=== PATIENT | male | born 1940 | race Caucasian/White ===

== ENCOUNTER 2017-04-08 16:21 | Inpatient (IN) | payer MEDICARE, OTHER ==
[~2017-04-08] VITALS: Ht 177.8 cm; Wt 92.4 kg
[2017-04-08] MEDS ORDERED: SODIUM CHLORIDE 0.9% 1,000 ML IV ONE (16:50)
[2017-04-08] MEDS ORDERED: CEFTRIAXONE PMX 1GM/50ML 50 ML IVPB ONE (17:00)
[2017-04-08] MEDS ORDERED: SODIUM CHLORIDE FLUSH 10ML SYR IVF ONE (17:00)
[2017-04-08] MEDS ORDERED: PLEASE ENTER ALLERGIES MC SCH ×2 (17:00)
[2017-04-08] MEDS ORDERED: CEFTRIAXONE PMX 1GM/50ML 50 ML ONE (17:19)
[2017-04-08 17:23] LABS: ASPARTATE AMINO TRANSFERASE 16 U/L (15-37); BLOOD UREA NITROGEN 23 mg/dL (7-18)
[2017-04-08 17:26] LABS: HEMATOCRIT 40.3 % (39.2-51.8); HEMOGLOBIN 13.4 g/dL (13.7-18.0); WHITE BLOOD COUNT 10.4 x10^3/uL (3.4-10)
[2017-04-08] MEDS ORDERED: SODIUM CHLORIDE 0.9% 1,000 ML IV SCH (17:44)
[2017-04-08] MEDS ORDERED: ACETAMINOPHEN 325 MG TABLET PO PRN (18:00)
[2017-04-08] MEDS ORDERED: SODIUM CHLORIDE FLUSH 10ML SYR IVF PRN (18:00)
[2017-04-08] MEDS ORDERED: hydrALAzine 20 MG/ML, 1ML IVPush PRN (18:00)
[2017-04-08] MEDS ORDERED: DEXTROSE 4 GM TAB.CHEW PO PRN (18:00)
[2017-04-08] MEDS ORDERED: ONDANSETRON 2MG/ML, 2ML IVPush PRN (18:00)
[2017-04-08] MEDS ORDERED: GLUCAGON 1 MG IM PRN (18:00)
[2017-04-08] MEDS ORDERED: DEXTROSE 50%, 50ML SYRINGE IVPush PRN (18:00)
[2017-04-08] MEDS ORDERED: PHARMACY MAY ADJ FOR RENAL FX MC PRN (18:00)
[2017-04-08] MEDS ORDERED: morphine SULFATE 10 MG/ML, 1ML IVPush PRN (18:00)
[2017-04-08] MEDS ORDERED: DOCUSATE 100 MG CAPSULE PO PRN (18:00)
[2017-04-08 19:34] VITALS: BP 144/79
[2017-04-08 20:15] VITALS: BP 144/79
[2017-04-08] MEDS ORDERED: INSULIN ASPART 70/30 100U/ML, PEN SQ-INSULIN SCH (21:00)
[2017-04-08] MEDS ORDERED: INSULIN ASPART 70/30, VIAL SQ-INSULIN SCH (21:00)
[2017-04-08] MEDS ORDERED: INSULIN ASPART 100 UNITS/ML, PEN SQ-INSULIN SCH (21:00)
[2017-04-08] MEDS ORDERED: INSULIN HUMULIN 70/30, 3ML PEN SQ-INSULIN SCH (21:00)
[2017-04-08] MEDS: INSULIN ASPART 70/30 100U/ML, PEN SQ-INSULIN SCH (23:04)
[2017-04-08] MEDS: INSULIN ASPART 100 UNITS/ML, PEN SQ-INSULIN SCH (23:05)
[2017-04-08] MEDS: SIMVASTATIN 40 MG TABLET PO SCH (23:05)
[2017-04-08] MEDS: MIRTAZAPINE 15 MG TABLET PO SCH (23:06)
[2017-04-08] MEDS: SODIUM CHLORIDE FLUSH 10ML SYR IVF SCH (23:12)
[2017-04-09] MEDS: HYDROcodone/APAP 5/325 TABLET PO PRN ×3 (00:26→21:02)
[2017-04-09 03:02] VITALS: BP 118/73
[2017-04-09 05:27] LABS: HEMATOCRIT 38.3 % (39.2-51.8); HEMOGLOBIN 12.6 g/dL (13.7-18.0); WHITE BLOOD COUNT 10.1 x10^3/uL (3.4-10)
[2017-04-09 05:36] LABS: BLOOD UREA NITROGEN 25 mg/dL (7-18)
[2017-04-09 05:40] LABS: ASPARTATE AMINO TRANSFERASE 11 U/L (15-37)
[2017-04-09] MEDS: METOPROLOL TARTRATE 50 MG TABLET PO SCH (05:51)
[2017-04-09] MEDS ORDERED: ALBUTEROL/IPRATROPIUM 2.5MG/0.5MG, 3 ML NPPB SCH (07:00)
[2017-04-09] MEDS: ALBUTEROL SULFATE 2.5 MG/3 ML NPPB SCH ×4 (07:35→19:25)
[2017-04-09] MEDS: INSULIN ASPART 100 UNITS/ML, PEN SQ-INSULIN SCH ×4 (08:16→21:02)
[2017-04-09] MEDS: SODIUM CHLORIDE FLUSH 10ML SYR IVF SCH ×2 (08:16→21:01)
[2017-04-09] MEDS: INSULIN ASPART 70/30 100U/ML, PEN SQ-INSULIN SCH ×2 (08:17→21:02)
[2017-04-09] MEDS: DIGOXIN 0.125 MG TABLET PO SCH (08:18)
[2017-04-09 08:31] VITALS: BP 120/70
[2017-04-09 08:41] LABS: TOTAL IRON BINDING CAPACITY 319 mcg/dL (250-450)
[2017-04-09 11:57] VITALS: BP 117/76
[2017-04-09] MEDS ORDERED: CARV3.122 PO (12:52)
[2017-04-09] MEDS ORDERED: ROSU20TA PO (12:52)
[2017-04-09] MEDS ORDERED: RIVA15TA PO (12:52)
[2017-04-09] MEDS ORDERED: DIGO125T PO (12:52)
[2017-04-09] MEDS ORDERED: DONE5TAB7 PO (12:52)
[2017-04-09] MEDS ORDERED: OMEP40CA6 PO (12:52)
[2017-04-09] MEDS ORDERED: MIRT30TA4 PO (12:52)
[2017-04-09 15:53] VITALS: BP 100/59
[2017-04-09] MEDS: RIVAROXABAN 15 MG TABLET PO SCH (16:09)
[2017-04-09] MEDS: CEFTRIAXONE PMX 2GM/50ML 50 ML IV SCH (17:43)
[2017-04-09] MEDS ORDERED: DIVA500T17 PO (18:44)
[2017-04-09] MEDS ORDERED: GEMF600T3 PO (18:44)
[2017-04-09] MEDS ORDERED: BENZ1TAB61 PO (18:44)
[2017-04-09 19:55] VITALS: BP 95/51
[2017-04-09] MEDS: SIMVASTATIN 40 MG TABLET PO SCH (21:01)
[2017-04-09] MEDS: MIRTAZAPINE 15 MG TABLET PO SCH (21:01)
[2017-04-09] MEDS ORDERED: MORPHINE SULFATE 4 MG/ML, 1ML ONE (23:46)
[2017-04-10 03:38] VITALS: BP 94/54
[2017-04-10] MEDS: METOPROLOL TARTRATE 50 MG TABLET PO SCH (05:56)
[2017-04-10] MEDS: HYDROcodone/APAP 5/325 TABLET PO PRN ×2 (06:04→17:40)
[2017-04-10] MEDS: INSULIN ASPART 100 UNITS/ML, PEN SQ-INSULIN SCH ×4 (07:00→21:42)
[2017-04-10 07:11] VITALS: BP 99/58
[2017-04-10] MEDS: DIGOXIN 0.125 MG TABLET PO SCH (07:36)
[2017-04-10] MEDS: SODIUM CHLORIDE FLUSH 10ML SYR IVF SCH ×2 (07:40→21:41)
[2017-04-10] MEDS: ALBUTEROL SULFATE 2.5 MG/3 ML NPPB SCH ×4 (07:52→19:15)
[2017-04-10 08:13] LABS: HEMATOCRIT 38.5 % (39.2-51.8); HEMOGLOBIN 12.8 g/dL (13.7-18.0); WHITE BLOOD COUNT 12.3 x10^3/uL (3.4-10)
[2017-04-10 08:22] LABS: BLOOD UREA NITROGEN 27 mg/dL (7-18)
[2017-04-10] MEDS: INSULIN ASPART 70/30 100U/ML, PEN SQ-INSULIN SCH ×2 (08:49→21:42)
[2017-04-10] MEDS ORDERED: CALCIUM CARBONATE 500 MG TAB.CHEW PO PRN (09:30)
[2017-04-10] MEDS ORDERED: HEMORRHOIDAL OINT, 28 GM (PREP H) RC PRN (09:30)
[2017-04-10 13:38] VITALS: BP 105/70
[2017-04-10] MEDS: RIVAROXABAN 15 MG TABLET PO SCH (16:36)
[2017-04-10 20:02] VITALS: BP 94/54
[2017-04-10] MEDS: MIRTAZAPINE 15 MG TABLET PO SCH (21:41)
[2017-04-10] MEDS: CEFTRIAXONE PMX 2GM/50ML 50 ML IV SCH (21:41)
[2017-04-10] MEDS: SIMVASTATIN 40 MG TABLET PO SCH (21:42)
[2017-04-11 02:31] VITALS: BP 129/59
[2017-04-11] MEDS: HYDROcodone/APAP 5/325 TABLET PO PRN ×2 (05:24→11:58)
[2017-04-11] MEDS: METOPROLOL TARTRATE 50 MG TABLET PO SCH (05:24)
[2017-04-11 05:32] LABS: HEMATOCRIT 40.3 % (39.2-51.8); HEMOGLOBIN 13.4 g/dL (13.7-18.0); WHITE BLOOD COUNT 10.6 x10^3/uL (3.4-10)
[2017-04-11 05:40] LABS: ASPARTATE AMINO TRANSFERASE 19 U/L (15-37); BLOOD UREA NITROGEN 27 mg/dL (7-18)
[2017-04-11] MEDS: INSULIN ASPART 100 UNITS/ML, PEN SQ-INSULIN SCH ×2 (07:00→11:50)
[2017-04-11] MEDS: ALBUTEROL SULFATE 2.5 MG/3 ML NPPB SCH ×2 (07:00→10:50)
[2017-04-11 07:31] VITALS: BP 86/43
[2017-04-11] MEDS: SODIUM CHLORIDE FLUSH 10ML SYR IVF SCH (08:37)
[2017-04-11] MEDS: DIGOXIN 0.125 MG TABLET PO SCH (08:38)
[2017-04-11] MEDS: INSULIN ASPART 70/30 100U/ML, PEN SQ-INSULIN SCH (08:39)
[2017-04-11 09:00] VITALS: BP 110/62
[2017-04-11] MEDS ORDERED: METO25TA91 PO (10:36)
[2017-04-11 12:53] VITALS: BP 90/48
[2017-04-12] MEDS ORDERED: ALBUTEROL SULFATE 2.5 MG/3 ML NPPB PRN (07:00)
== END 2017-04-11 16:30 | DRG 291 ==
LOC: ED 17:19 → EDIP 17:44 → 4EST 19:24
PROVIDERS: ADMIT Internal Medicine; ATTEND Internal Medicine
PROC: 0T9B70Z Drainage of Bladder with Drainage Device, Via Natural or Artificial Opening (ICD-10-PCS; principal; 2017-04-08)
DX: I11.0 Hypertensive heart disease with heart failure (principal); N17.0 Acute kidney failure with tubular necrosis; N39.0 Urinary tract infection, site not specified; J96.10 Chronic respiratory failure, unspecified whether with hypoxia or hypercapnia; I50.9 Heart failure, unspecified; E11.42 Type 2 diabetes mellitus with diabetic polyneuropathy; R53.1 Weakness; E78.00 Pure hypercholesterolemia, unspecified; E78.5 Hyperlipidemia, unspecified; I35.8 Other nonrheumatic aortic valve disorders; J44.9 Chronic obstructive pulmonary disease, unspecified; K59.00 Constipation, unspecified; M43.16 Spondylolisthesis, lumbar region; I25.10 Atherosclerotic heart disease of native coronary artery without angina pectoris; M51.36 Other intervertebral disc degeneration, lumbar region; N40.0 Benign prostatic hyperplasia without lower urinary tract symptoms; Z79.01 Long term (current) use of anticoagulants; Z86.73 Personal history of transient ischemic attack (TIA), and cerebral infarction without residual deficits; Z87.440 Personal history of urinary (tract) infections; Z87.891 Personal history of nicotine dependence; Z95.0 Presence of cardiac pacemaker; Z90.89 Acquired absence of other organs
CPT/HCPCS: 36415; 71010; 72100; 72220; 80048; 80053; 81003; 82607; 82746; 82962; 83036; 83540; 83550; 83605; 83735; 84100; 84439; 84443; 85025; 87040; 87086; 94640; 96365; 96366; C8929; J0696; J1815; J7613; 92523-GN; J2270; J7030

== ENCOUNTER 2017-12-09 17:54 | Inpatient (IN) | payer MEDICARE, OTHER ==
[~2017-12-09] VITALS: Ht 177.8 cm; Wt 84.0 kg
[~2017-12-09 17:54] MED LIST: ASPI-496 PO; BENZ1TAB61 PO; CARV3.122 PO; CIPR500T87 PO; DIGO125T PO; DIVA500T17 PO; DONE5TAB7 PO; GEMF600T3 PO; HYDROXYZINE HCL; LACT1CAP24 PO; LINE600T37 PO; METHOCARBAMOL; METO25TA91 PO; MIRT30TA4 PO; OMEP40CA6 PO; RIVA15TA PO; ROSU20TA PO
[2017-12-09] MEDS ORDERED: SODIUM CHLORIDE FLUSH 10ML SYR IVF ONE (18:30)
[2017-12-09] MEDS ORDERED: SODIUM CHLORIDE 0.9% 1,000ML IVBOLUS ONE (18:30)
[2017-12-09 18:33] LABS: BASOPHILS # (AUTO) 0.07 x10^3/uL (0-0.1); BASOPHILS % (AUTO) 1 % (0-1); EOSINOPHILS # (AUTO) 0.38 x10^3/uL (0-0.4); EOSINOPHILS % (AUTO) 3 % (1-7); LYMPHOCYTES # (AUTO) 3.66 x10^3/uL (1-3.4); LYMPHOCYTES % (AUTO) 27 % (22-44); MD NO; MEAN CORPUSCULAR HEMOGLOBIN 29.4 pg (27.5-34.5); MEAN CORPUSCULAR HGB CONC 32.9 g/dL (33.2-36.2); MEAN CORPUSCULAR VOLUME 89.3 fL (81-97); MEAN PLATELET VOLUME 7.7 fL (7.4-10.4); MONOCYTES # (AUTO) 1.34 x10^3/uL (0.2-0.8); MONOCYTES % (AUTO) 10 % (2-9); NEUTROPHILS # (AUTO) 8.29 x10^3/uL (1.8-6.8); NEUTROPHILS % (AUTO) 60 % (42-75); PLATELET COUNT 412 x10^3/uL (130-400); RED BLOOD COUNT 3.64 x10^6/uL (4.38-5.82); RED CELL DISTRIBUTION WIDTH 14.1 % (9.4-14.8)
[2017-12-09 18:43] LABS: ALANINE AMINOTRANSFERASE 45 U/L (12-78); ALBUMIN 2.8 g/dL (3.4-5.0); ANION GAP 9 mmol/L (5-15); CALCIUM 9.1 mg/dL (8.5-10.1); CHLORIDE 99 mmol/L (98-107); CREATININE 1.92 mg/dL (0.7-1.3)
[2017-12-09 18:45] LABS: ALKALINE PHOSPHATASE 68 U/L (45-117); BILIRUBIN,TOTAL 0.2 mg/dL (0.2-1.0); TOTAL PROTEIN 7.9 g/dL (6.4-8.2)
[2017-12-09 18:45] LABS: CULTURE INDICATED? YES; MICROSCOPIC INDICATED
[2017-12-09] MEDS ORDERED: SODIUM CHLORIDE 0.9%, 500ML IVBOLUS ONE (20:30)
[2017-12-09 22:00] VITALS: BP 143/70
[2017-12-09] MEDS ORDERED: SODIUM CHLORIDE 0.9% 1,000 ML IV SCH (22:08)
[2017-12-09] MEDS ORDERED: hydrALAzine 20 MG/ML, 1ML IVPush PRN (22:30)
[2017-12-09] MEDS ORDERED: ACETAMINOPHEN 325 MG TABLET PO PRN (22:30)
[2017-12-09] MEDS ORDERED: ONDANSETRON ODT 4 MG PO PRN (22:30)
[2017-12-09] MEDS: CIPROFLOXACIN 500 MG TABLET PO SCH (23:19)
[2017-12-10] MEDS ORDERED: MIRTAZAPINE 30 MG TAB.RAPDIS PO SCH (01:00)
[2017-12-10] MEDS ORDERED: TEMPLATE NON-FORMULARY MED. (Rosuvastatin Calcium** (Crestor**) 20 MG) HOMEMEDPO SCH (01:00)
[2017-12-10] MEDS ORDERED: RIVAROXABAN 15 MG TABLET PO SCH (01:00)
[2017-12-10] MEDS: LACTOBACILLUS CHEW TABLET PO SCH ×3 (01:14→16:31)
[2017-12-10 02:12] VITALS: BP 131/55
[2017-12-10 07:21] VITALS: BP 131/72
[2017-12-10] MEDS ORDERED: GEMFIBROZIL 600 MG TABLET PO SCH (09:00)
[2017-12-10] MEDS ORDERED: DIVALPROEX 500 MG TAB.ER.24H PO SCH (09:00)
[2017-12-10] MEDS ORDERED: LINEZOLID 600 MG TABLET PO SCH (09:00)
[2017-12-10] MEDS ORDERED: DIGOXIN 0.125 MG TABLET PO SCH (09:00)
[2017-12-10] MEDS ORDERED: DONEPEZIL 5 MG TABLET PO SCH (09:00)
[2017-12-10] MEDS ORDERED: OMEPRAZOLE 20 MG CAPSULE.DR PO SCH (09:00)
[2017-12-10] MEDS ORDERED: ASPIRIN 81 MG TABLET EC PO SCH (09:00)
[2017-12-10] MEDS: CIPROFLOXACIN 500 MG TABLET PO SCH (09:08)
[2017-12-10 14:00] VITALS: BP 110/67
[2017-12-10] MEDS ORDERED: LACTOBACILLUS CHEW TABLET PO SCH (16:00)
[2017-12-10] MEDS ORDERED: INSULIN LISPRO 100 UNITS/ML, PEN SQ-INSULIN SCH (16:00)
[2017-12-10] MEDS ORDERED: BENZTROPINE 1 MG TABLET PO SCH (17:00)
[2017-12-10] MEDS ORDERED: SODIUM CHLORIDE 0.9% 1,000 ML IV SCH ×2 (22:08)
[2017-12-11] MEDS ORDERED: METOPROLOL SUCCINATE 25 MG TAB.ER.24H PO SCH (09:00)
== END 2017-12-11 05:07 | DRG 682 ==
LOC: ED 19:00 → EDIP 21:50 → 4WST 22:20
PROVIDERS: ADMIT Internal Medicine; ATTEND Family Medicine
DX: N17.0 Acute kidney failure with tubular necrosis (principal); E43 Unspecified severe protein-calorie malnutrition; J96.10 Chronic respiratory failure, unspecified whether with hypoxia or hypercapnia; E11.42 Type 2 diabetes mellitus with diabetic polyneuropathy; I11.0 Hypertensive heart disease with heart failure; I48.0 Paroxysmal atrial fibrillation; I50.22 Chronic systolic (congestive) heart failure; N13.8 Other obstructive and reflux uropathy; N39.0 Urinary tract infection, site not specified; E86.0 Dehydration; Z99.81 Dependence on supplemental oxygen; B96.5 Pseudomonas (aeruginosa) (mallei) (pseudomallei) as the cause of diseases classified elsewhere; R53.1 Weakness; E78.00 Pure hypercholesterolemia, unspecified; F03.90 Unspecified dementia, unspecified severity, without behavioral disturbance, psychotic disturbance, mood disturbance, and anxiety; I25.10 Atherosclerotic heart disease of native coronary artery without angina pectoris; J44.9 Chronic obstructive pulmonary disease, unspecified; K21.9 Gastro-esophageal reflux disease without esophagitis; N40.1 Benign prostatic hyperplasia with lower urinary tract symptoms; Z86.73 Personal history of transient ischemic attack (TIA), and cerebral infarction without residual deficits; Z87.891 Personal history of nicotine dependence; Z90.81 Acquired absence of spleen; Z95.0 Presence of cardiac pacemaker; Z79.82 Long term (current) use of aspirin
CPT/HCPCS: 36415; 80053; 80162; 80164; 81001; 82962; 85025; 87077; 87086; 87106; 93005; 96360; 96361; J7030; J7040

== ENCOUNTER 2019-08-27 01:48 | Inpatient (IN) | payer MEDICARE, OTHER ==
[~2019-08-27] VITALS: Ht 177.8 cm; Wt 80.0 kg
[~2019-08-27 01:48] MED LIST changes: -DIGO125T PO; +DIGO125T85 PO; +DOCU100C33 PO; -GEMF600T3 PO; +GEMF600T8 PO; +HYDR-826 PO; +INSU100I13 SQ-INSULIN; +INSULIN SQ; +LINE600T12 PO; -LINE600T37 PO; +MICA100V3 IV; +OMEP40CA42 PO; -OMEP40CA6 PO; -ROSU20TA PO; +ROSU20TA2 PO; +VALP250S PO
[2019-08-27 02:30] LABS: BASOPHILS # (AUTO) 0.06 x10^3/uL (0-0.1); BASOPHILS % (AUTO) 1 % (0-1); EOSINOPHILS # (AUTO) 0.37 x10^3/uL (0-0.4); EOSINOPHILS % (AUTO) 3 % (1-7); LYMPHOCYTES # (AUTO) 3.66 x10^3/uL (1-3.4); LYMPHOCYTES % (AUTO) 32 % (22-44); MD NO; MEAN CORPUSCULAR HEMOGLOBIN 29.9 pg (27.5-34.5); MEAN CORPUSCULAR VOLUME 90.7 fL (81-97); MONOCYTES # (AUTO) 1.06 x10^3/uL (0.2-0.8); MONOCYTES % (AUTO) 9 % (2-9); NEUTROPHILS # (AUTO) 6.33 x10^3/uL (1.8-6.8); NEUTROPHILS % (AUTO) 55 % (42-75); PLATELET COUNT 250 x10^3/uL (130-400); RED BLOOD COUNT 4.03 x10^6/uL (4.38-5.82); RED CELL DISTRIBUTION WIDTH 13.2 % (9.4-14.8)
[2019-08-27 02:39] LABS: ANION GAP 5 mmol/L (5-15); CALCIUM 9.1 mg/dL (8.5-10.1); CHLORIDE 97 mmol/L (98-107); CREATININE 1.67 mg/dL (0.7-1.3)
[2019-08-27 02:43] LABS: TROPONIN I < 0.015 ng/mL (0.000-0.045)
--- NOTE | 2019-08-27 02:48 | NUR ---
BIB [facility] FROM [place] d/t SOB current vss stable pt denied chest discomfort or sob at this time sats 91-62% at room air applied 2 liters of oxygen via nc pt is resting pt was gowned all monitor were connected call light within reach pt came in with suprapubic cath with clean urine noted
[2019-08-27] MEDS ORDERED: GLIP10TA13 PO (03:01)
[2019-08-27] MEDS ORDERED: SERT50TA28 PO (03:01)
[2019-08-27] MEDS ORDERED: ALOG6.25 PO (03:01)
[2019-08-27] MEDS ORDERED: RIVA15TA PO (03:01)
[2019-08-27] MEDS ORDERED: DIVA125C2 PO (03:01)
[2019-08-27] MEDS ORDERED: ROSU10TA2 PO (03:01)
[2019-08-27] MEDS ORDERED: DIGO125T81 PO (03:01)
[2019-08-27] MEDS ORDERED: RISP4TAB34 PO (03:01)
[2019-08-27] MEDS ORDERED: CARV3.1212 PO (03:01)
[2019-08-27] MEDS ORDERED: HYDR-826 PO (03:01)
[2019-08-27] MEDS ORDERED: DIGO125T85 PO (03:01)
[2019-08-27] MEDS ORDERED: FUROSEMIDE 40 MG/4 ML ONE (03:24)
[2019-08-27] MEDS: FUROSEMIDE 40 MG/4 ML IV ONE ×2 (03:29→04:13)
--- NOTE | 2019-08-27 03:50 | NUR ---
BREAK RN: ATTEMPTED IV ACCESS X 3. UNSUCCESSFUL.
[2019-08-27] MEDS ORDERED: ONDANSETRON ODT 4 MG PO PRN (04:00)
[2019-08-27] MEDS ORDERED: morphine SULFATE 10 MG/ML, 1ML IVPush PRN (04:00)
[2019-08-27] MEDS ORDERED: POLYETHYLENE GLYCOL 17 GM PACKET PO PRN (04:00)
[2019-08-27] MEDS ORDERED: DOCUSATE 100 MG CAPSULE PO PRN (04:00)
[2019-08-27] MEDS ORDERED: hydrALAzine 20 MG/ML, 1ML IVPush PRN (04:00)
[2019-08-27] MEDS ORDERED: ONDANSETRON 2MG/ML, 2ML IVPush PRN (04:00)
[2019-08-27] MEDS ORDERED: OXYcodone IR 5MG TABLET PO PRN (04:00)
[2019-08-27] MEDS ORDERED: PROMETHAZINE 25 MG/ML, 1ML IM PRN (04:00)
[2019-08-27] MEDS ORDERED: BISACODYL 10 MG SUPP PR PRN (04:00)
[2019-08-27] MEDS ORDERED: ACETAMINOPHEN 325 MG TABLET PO PRN (04:00)
--- NOTE | 2019-08-27 04:22 | NUR ---
BREAK RN: CATH BAG EMPTIED OF 1,000ML OF CLEAR YELLOW, FOUL-SMELLING URINE. MEDICATED PER OCT. PT. PROVIDED WITH SIPS OF WATER PER REQUEST. DENIES OTHER NEEDS. SAFETY MEASURES MAINTAINED.
[2019-08-27 05:11] LABS: FREE T4 (FREE THYROXINE) 0.76 ng/dL (0.76-1.46)
--- NOTE | 2019-08-27 05:26 | NUR ---
pt is sleeping vss updated guerin bag is almost full again d/t iv lasix
--- NOTE | 2019-08-27 07:07 | NUR ---
pt is sleeping vss stable given report to [facility]
--- NOTE | 2019-08-27 07:31 | NUR ---
REPORT RECEIVED FROM SILVIANO JOHNSON.
--- NOTE | 2019-08-27 08:30 | NUR ---
SANDERS CATHETER BAG REPLACED WITH 2800ML OUTPUT. NIGHTSHIFT RN STATED HE HAD 1000ML OUTPUT FOR HER FOR A TOTAL OF 3800ML SINCE LASIX ADMINISTRATION.
--- NOTE | 2019-08-27 08:38 | NUR ---
TELEPHONE CONVERSATION WITH PROVIDER BA DUBOSE REGARDING CONCERN TO START MAINTAINANCE FLUIDS AFTER 3800 OUTPUT. PROVIDER STATED TO HOLD OFF ON FLUIDS WELL HOLD ANY ORDERS FOR LASIX UNTIL HE COMES AND EVALUATES THE PATIENT THIS MORNING. WILL CONTINUE TO MONITOR.
--- NOTE | 2019-08-27 08:49 | NUR ---
TELEPHONE CONVERSATION WITH BA DUBOSE PA-C REGARDING NEED FOR SWALLOW EVAL BEFORE DELIVERING BREAKFAST TRAY. ORDER PLACED.
[2019-08-27] MEDS ORDERED: FUROSEMIDE 20 MG/2 ML IV SCH (09:00)
[2019-08-27] MEDS: DIVALPROEX 125 MG CAP.SPRINK PO SCH ×2 (09:28→21:00)
--- NOTE | 2019-08-27 09:30 | NUR ---
AM DGEY=425CX/DL. HOLDING INSULIN AT THIS TIME PATIENT'S FOOD WILL BE HELD UNTIL HE CAN BE EVALUATED BY [facility]T FOR SWALLOW STUDY. PT CHOKED WHILE DRINKING WATER THIS AM. DR. SUÁREZ NOTIFIED AND SWALLOW STUDY ORDERED.
[2019-08-27] MEDS ORDERED: CARVEDILOL 3.125 MG TABLET ONE (09:31)
--- NOTE | 2019-08-27 09:33 | NUR ---
URINE COLLECTED AND SENT TO LAB.
[2019-08-27] MEDS: RIVAROXABAN 15 MG TABLET PO SCH (09:40)
[2019-08-27] MEDS: CARVEDILOL 3.125 MG TABLET PO SCH ×2 (09:40→21:00)
[2019-08-27] MEDS: OMEPRAZOLE 20 MG CAPSULE.DR PO SCH (09:41)
--- NOTE | 2019-08-27 09:49 | NUR ---
PHARMACY REQUEST SLIP SENT FOR PO DIGOXIN.
[2019-08-27] MEDS: INSULIN LISPRO 100 UNITS/ML, PEN SQ-INSULIN SCH ×4 (09:50→21:00)
--- NOTE | 2019-08-27 09:50 | NUR ---
0900 MEDICATIONS GIVEN IN APPLE SAUCE.
[2019-08-27 09:52] LABS: MICROSCOPIC INDICATED
[2019-08-27] MEDS: DIGOXIN 0.125 MG TABLET PO SCH (10:33)
[2019-08-27] MEDS ORDERED: ALBUTEROL/IPRATROPIUM 2.5MG/0.5MG, 3 ML ONE ×2 (10:46→14:46)
--- NOTE | 2019-08-27 10:48 | NUR ---
PHARMACY REQUEST SLIP SENT FOR 10AM MEDS.
[2019-08-27] MEDS: ALBUTEROL/IPRATROPIUM 2.5MG/0.5MG, 3 ML NPPB SCH ×3 (10:55→19:22)
--- NOTE | 2019-08-27 11:01 | NUR ---
REPORT GIVEN TO ZOE JOHNSON.
[2019-08-27 11:18] LABS: ANION GAP 8 mmol/L (5-15); CALCIUM 8.9 mg/dL (8.5-10.1); CHLORIDE 98 mmol/L (98-107); CREATININE 1.75 mg/dL (0.7-1.3)
--- NOTE | 2019-08-27 12:02 | NUR ---
Report from [facility] Patient resting comfortably on hospital bed (sleeping) VSS on monitoring and evaluation advisor (paced rhythm noted) 98% on 2l nc
[2019-08-27] MEDS: IRON SUCROSE COMPLEX 100MG/5ML IV SCH (13:38)
[2019-08-27] MEDS: CHOLECALCIFEROL 1,000 UNIT TABLET PO SCH (13:38)
--- NOTE | 2019-08-27 14:00 | NUR ---
BEDSIDE REPORT TO JANET JOHNSON
[2019-08-27] MEDS ORDERED: FUROSEMIDE 20 MG/2 ML IV ONE (15:00)
[2019-08-27 15:03] VITALS: BP 103/66
[2019-08-27 20:28] VITALS: BP 98/72
[2019-08-27 20:58] VITALS: BP 166/106
[2019-08-27] MEDS: RISPERIDONE 2 MG TABLET PO SCH (21:00)
[2019-08-27] MEDS: TEMPLATE NON-FORMULARY MED. (Rosuvastatin Calcium** (Crestor**) 10 MG) PO SCH (21:00)
[2019-08-27] MEDS: SERTRALINE 50MG TABLET PO SCH (21:00)
[2019-08-27 21:20] LABS: BASOPHILS # (AUTO) 0.03 x10^3/uL (0-0.1); BASOPHILS % (AUTO) 0 % (0-1); EOSINOPHILS # (AUTO) 0.36 x10^3/uL (0-0.4); EOSINOPHILS % (AUTO) 3 % (1-7); LYMPHOCYTES # (AUTO) 3.58 x10^3/uL (1-3.4); LYMPHOCYTES % (AUTO) 28 % (22-44); MD NO; MEAN CORPUSCULAR HEMOGLOBIN 29.7 pg (27.5-34.5); MEAN CORPUSCULAR HGB CONC 32.7 g/dL (33.2-36.2); MEAN CORPUSCULAR VOLUME 90.9 fL (81-97); MONOCYTES # (AUTO) 1.01 x10^3/uL (0.2-0.8); MONOCYTES % (AUTO) 8 % (2-9); NEUTROPHILS % (AUTO) 61 % (42-75); PLATELET COUNT 248 x10^3/uL (130-400); RED BLOOD COUNT 4.55 x10^6/uL (4.38-5.82); RED CELL DISTRIBUTION WIDTH 13.8 % (9.4-14.8)
[2019-08-27 21:27] LABS: ANION GAP 7 mmol/L (5-15); CALCIUM 9.3 mg/dL (8.5-10.1); CHLORIDE 100 mmol/L (98-107)
[2019-08-27 21:37] LABS: INTERNATIONAL NORMALIZED RATIO 1.06 (0.93-1.1); PROTHROMBIN TIME 11.1 Seconds (9.6-11.5)
[2019-08-28 01:05] VITALS: BP 136/84
[2019-08-28 05:50] LABS: BASOPHILS # (AUTO) 0.03 x10^3/uL (0-0.1); BASOPHILS % (AUTO) 0 % (0-1); EOSINOPHILS # (AUTO) 0.27 x10^3/uL (0-0.4); EOSINOPHILS % (AUTO) 3 % (1-7); LYMPHOCYTES # (AUTO) 2.97 x10^3/uL (1-3.4); LYMPHOCYTES % (AUTO) 28 % (22-44); MD NO; MEAN CORPUSCULAR HEMOGLOBIN 29.6 pg (27.5-34.5); MEAN CORPUSCULAR HGB CONC 32.6 g/dL (33.2-36.2); MEAN CORPUSCULAR VOLUME 90.9 fL (81-97); MEAN PLATELET VOLUME 9.3 fL (7.4-10.4); MONOCYTES # (AUTO) 0.91 x10^3/uL (0.2-0.8); MONOCYTES % (AUTO) 9 % (2-9); NEUTROPHILS # (AUTO) 6.64 x10^3/uL (1.8-6.8); NEUTROPHILS % (AUTO) 61 % (42-75); PLATELET COUNT 240 x10^3/uL (130-400); RED BLOOD COUNT 4.79 x10^6/uL (4.38-5.82); RED CELL DISTRIBUTION WIDTH 13.6 % (9.4-14.8)
[2019-08-28 06:02] LABS: ALBUMIN 3.2 g/dL (3.4-5.0); ANION GAP 7 mmol/L (5-15); CALCIUM 9.3 mg/dL (8.5-10.1); CHLORIDE 99 mmol/L (98-107)
[2019-08-28 06:07] LABS: ALANINE AMINOTRANSFERASE 11 U/L (12-78); ALKALINE PHOSPHATASE 81 U/L (45-117); BILIRUBIN,TOTAL 0.2 mg/dL (0.2-1.0); CHOL/HDL RATIO 5.1; CHOLESTEROL, TOTAL 174 mg/dL (140-239); HDL CHOL % 20 % (26-37); HDL CHOLESTEROL (DIRECT) 34 mg/dL (40-60); LDL CHOLESTEROL,CALCULATED 79 mg/dL (54-169); LDL/HDL RATIO 2.3 (0.5-3.0); TRIGLYCERIDES 303 mg/dL (50-200); VLDL CHOLESTEROL 61 mg/dL (0-25)
[2019-08-28] MEDS: ALBUTEROL/IPRATROPIUM 2.5MG/0.5MG, 3 ML NPPB SCH ×4 (07:00→19:14)
[2019-08-28 08:05] VITALS: BP 87/56
[2019-08-28] MEDS: INSULIN LISPRO 100 UNITS/ML, PEN SQ-INSULIN SCH ×4 (08:23→21:54)
[2019-08-28] MEDS: IRON SUCROSE COMPLEX 100MG/5ML IV SCH (09:49)
[2019-08-28] MEDS: CARVEDILOL 3.125 MG TABLET PO SCH ×2 (09:50→21:53)
[2019-08-28] MEDS: DIVALPROEX 125 MG CAP.SPRINK PO SCH ×2 (09:50→21:52)
[2019-08-28] MEDS: CHOLECALCIFEROL 1,000 UNIT TABLET PO SCH (09:50)
[2019-08-28] MEDS: OMEPRAZOLE 20 MG CAPSULE.DR PO SCH (09:50)
[2019-08-28] MEDS: RIVAROXABAN 15 MG TABLET PO SCH (09:51)
[2019-08-28 16:34] VITALS: BP 104/70
[2019-08-28 20:52] VITALS: BP 117/68
[2019-08-28] MEDS: TEMPLATE NON-FORMULARY MED. (Rosuvastatin Calcium** (Crestor**) 10 MG) PO SCH (21:00)
[2019-08-28] MEDS: SERTRALINE 50MG TABLET PO SCH (21:53)
[2019-08-28] MEDS: RISPERIDONE 2 MG TABLET PO SCH (21:53)
[2019-08-29 02:18] VITALS: BP 133/77
[2019-08-29 05:39] LABS: BASOPHILS # (AUTO) 0.03 x10^3/uL (0-0.1); BASOPHILS % (AUTO) 0 % (0-1); EOSINOPHILS # (AUTO) 0.18 x10^3/uL (0-0.4); EOSINOPHILS % (AUTO) 2 % (1-7); LYMPHOCYTES # (AUTO) 3.65 x10^3/uL (1-3.4); LYMPHOCYTES % (AUTO) 31 % (22-44); MD NO; MEAN CORPUSCULAR HGB CONC 32.8 g/dL (33.2-36.2); MEAN CORPUSCULAR VOLUME 91.3 fL (81-97); MEAN PLATELET VOLUME 9.1 fL (7.4-10.4); MONOCYTES # (AUTO) 1.32 x10^3/uL (0.2-0.8); MONOCYTES % (AUTO) 11 % (2-9); NEUTROPHILS # (AUTO) 6.59 x10^3/uL (1.8-6.8); NEUTROPHILS % (AUTO) 56 % (42-75); PLATELET COUNT 231 x10^3/uL (130-400); RED BLOOD COUNT 4.56 x10^6/uL (4.38-5.82); RED CELL DISTRIBUTION WIDTH 13.7 % (9.4-14.8)
[2019-08-29 05:49] LABS: ANION GAP 8 mmol/L (5-15); CALCIUM 8.7 mg/dL (8.5-10.1); CHLORIDE 101 mmol/L (98-107); CREATININE 2.35 mg/dL (0.7-1.3)
[2019-08-29] MEDS: ALBUTEROL/IPRATROPIUM 2.5MG/0.5MG, 3 ML NPPB SCH ×2 (07:00→11:40)
[2019-08-29] MEDS: INSULIN LISPRO 100 UNITS/ML, PEN SQ-INSULIN SCH ×4 (08:20→21:51)
[2019-08-29 08:23] VITALS: BP 125/79
[2019-08-29] MEDS: OMEPRAZOLE 20 MG CAPSULE.DR PO SCH (10:10)
[2019-08-29] MEDS: DIVALPROEX 125 MG CAP.SPRINK PO SCH ×2 (10:10→21:51)
[2019-08-29] MEDS: IRON SUCROSE COMPLEX 100MG/5ML IV SCH (10:10)
[2019-08-29] MEDS: CARVEDILOL 3.125 MG TABLET PO SCH ×2 (10:11→21:51)
[2019-08-29] MEDS: CHOLECALCIFEROL 1,000 UNIT TABLET PO SCH (10:11)
[2019-08-29] MEDS: LACTOBACILLUS CHEW TABLET PO SCH ×3 (10:11→21:50)
[2019-08-29] MEDS: RIVAROXABAN 15 MG TABLET PO SCH (10:12)
[2019-08-29] MEDS: SODIUM CHLORIDE 0.9% 1,000 ML IV SCH (10:12)
[2019-08-29] MEDS: DIGOXIN 0.125 MG TABLET PO SCH (10:12)
[2019-08-29 13:55] VITALS: BP 110/72
[2019-08-29] MEDS: ACETAMINOPHEN 325 MG TABLET PO PRN ×2 (16:25→21:50)
[2019-08-29] MEDS ORDERED: ALBUTEROL/IPRATROPIUM 2.5MG/0.5MG, 3 ML NPPB PRN (18:00)
[2019-08-29 19:52] VITALS: BP 103/65
[2019-08-29] MEDS: TEMPLATE NON-FORMULARY MED. (Rosuvastatin Calcium** (Crestor**) 10 MG) PO SCH (21:00)
[2019-08-29] MEDS: RISPERIDONE 2 MG TABLET PO SCH (21:50)
[2019-08-29] MEDS: SERTRALINE 50MG TABLET PO SCH (21:51)
[2019-08-30 01:08] VITALS: BP 121/69
[2019-08-30] MEDS: SODIUM CHLORIDE 0.9% 1,000 ML IV SCH ×2 (02:44→20:45)
[2019-08-30 05:34] LABS: BASOPHILS # (AUTO) 0.04 x10^3/uL (0-0.1); BASOPHILS % (AUTO) 0 % (0-1); EOSINOPHILS # (AUTO) 0.17 x10^3/uL (0-0.4); EOSINOPHILS % (AUTO) 2 % (1-7); LYMPHOCYTES # (AUTO) 3.51 x10^3/uL (1-3.4); LYMPHOCYTES % (AUTO) 37 % (22-44); MD NO; MEAN CORPUSCULAR HEMOGLOBIN 30.1 pg (27.5-34.5); MEAN CORPUSCULAR HGB CONC 32.5 g/dL (33.2-36.2); MEAN CORPUSCULAR VOLUME 92.6 fL (81-97); MEAN PLATELET VOLUME 8.8 fL (7.4-10.4); MONOCYTES % (AUTO) 8 % (2-9); NEUTROPHILS % (AUTO) 53 % (42-75); PLATELET COUNT 230 x10^3/uL (130-400); RED BLOOD COUNT 4.09 x10^6/uL (4.38-5.82); RED CELL DISTRIBUTION WIDTH 13.6 % (9.4-14.8)
[2019-08-30 05:39] LABS: ANION GAP 7 mmol/L (5-15); CALCIUM 8.5 mg/dL (8.5-10.1); CHLORIDE 107 mmol/L (98-107)
[2019-08-30 08:00] VITALS: BP 124/71
[2019-08-30] MEDS ORDERED: DIGOXIN 0.125 MG TABLET PO SCH (09:00)
[2019-08-30] MEDS: INSULIN LISPRO 100 UNITS/ML, PEN SQ-INSULIN SCH ×4 (09:10→20:47)
[2019-08-30] MEDS: OMEPRAZOLE 20 MG CAPSULE.DR PO SCH (09:11)
[2019-08-30] MEDS: DIVALPROEX 125 MG CAP.SPRINK PO SCH ×2 (09:11→20:47)
[2019-08-30] MEDS: LACTOBACILLUS CHEW TABLET PO SCH ×3 (09:12→20:47)
[2019-08-30] MEDS: CHOLECALCIFEROL 1,000 UNIT TABLET PO SCH (09:12)
[2019-08-30] MEDS: IRON SUCROSE COMPLEX 100MG/5ML IV SCH (09:12)
[2019-08-30] MEDS: CARVEDILOL 3.125 MG TABLET PO SCH ×2 (09:12→20:46)
[2019-08-30] MEDS: ACETAMINOPHEN 325 MG TABLET PO PRN (09:12)
[2019-08-30] MEDS: RIVAROXABAN 15 MG TABLET PO SCH (09:13)
[2019-08-30] MEDS ORDERED: INSU100I11 SQ-INSULIN (11:31)
[2019-08-30] MEDS ORDERED: FERR-51 PO (11:31)
[2019-08-30] MEDS ORDERED: CARV3.1212 PO (11:31)
[2019-08-30] MEDS ORDERED: ACID1TAB7 PO (11:31)
[2019-08-30] MEDS ORDERED: BISA10SU54 PR (11:44)
[2019-08-30] MEDS ORDERED: SENN-99 PO (11:45)
[2019-08-30] MEDS ORDERED: LISI2.5T PO (12:53)
--- NOTE | 2019-08-30 18:37 | NUR ---
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
[2019-08-30 19:28] VITALS: BP 98/62
[2019-08-30] MEDS: SERTRALINE 50MG TABLET PO SCH (20:46)
[2019-08-30] MEDS: RISPERIDONE 2 MG TABLET PO SCH (20:47)
[2019-08-30] MEDS: TEMPLATE NON-FORMULARY MED. (Rosuvastatin Calcium** (Crestor**) 10 MG) PO SCH (20:48)
[2019-08-30 20:50] VITALS: BP 104/63
[2019-08-31 01:49] VITALS: BP 136/82
[2019-08-31 06:07] LABS: ANION GAP 6 mmol/L (5-15); CALCIUM 8.9 mg/dL (8.5-10.1); CHLORIDE 108 mmol/L (98-107); CREATININE 1.79 mg/dL (0.7-1.3)
[2019-08-31] MEDS: INSULIN LISPRO 100 UNITS/ML, PEN SQ-INSULIN SCH ×4 (07:00→21:00)
[2019-08-31 08:02] VITALS: BP 143/85
[2019-08-31] MEDS: LACTOBACILLUS CHEW TABLET PO SCH ×3 (10:00→20:33)
[2019-08-31] MEDS: CHOLECALCIFEROL 1,000 UNIT TABLET PO SCH (10:00)
[2019-08-31] MEDS: DIVALPROEX 125 MG CAP.SPRINK PO SCH ×2 (10:00→20:32)
[2019-08-31] MEDS: CARVEDILOL 3.125 MG TABLET PO SCH ×2 (10:00→20:33)
[2019-08-31] MEDS: OMEPRAZOLE 20 MG CAPSULE.DR PO SCH (10:00)
[2019-08-31] MEDS: RIVAROXABAN 15 MG TABLET PO SCH (10:00)
[2019-08-31] MEDS: SODIUM CHLORIDE 0.9% 1,000 ML IV SCH (13:27)
[2019-08-31 14:42] VITALS: BP 129/81
[2019-08-31 19:25] VITALS: BP 105/67
[2019-08-31] MEDS: BENZTROPINE 1 MG TABLET PO SCH (20:33)
[2019-08-31] MEDS: ACETAMINOPHEN 325 MG TABLET PO PRN (20:33)
[2019-08-31] MEDS: SERTRALINE 50MG TABLET PO SCH (20:33)
[2019-08-31] MEDS: TEMPLATE NON-FORMULARY MED. (Rosuvastatin Calcium** (Crestor**) 10 MG) PO SCH (21:00)
[2019-08-31] MEDS ORDERED: RISPERIDONE 2 MG TABLET PO SCH (21:00)
[2019-09-01 01:09] VITALS: BP 122/76
[2019-09-01] MEDS: SODIUM CHLORIDE 0.9% 1,000 ML IV SCH (05:40)
[2019-09-01] MEDS: INSULIN LISPRO 100 UNITS/ML, PEN SQ-INSULIN SCH ×2 (07:00→11:48)
[2019-09-01 07:06] VITALS: BP 112/65
[2019-09-01] MEDS: BENZTROPINE 1 MG TABLET PO SCH (09:18)
[2019-09-01] MEDS: CHOLECALCIFEROL 1,000 UNIT TABLET PO SCH (09:18)
[2019-09-01] MEDS: RIVAROXABAN 15 MG TABLET PO SCH (09:18)
[2019-09-01] MEDS: OMEPRAZOLE 20 MG CAPSULE.DR PO SCH (09:18)
[2019-09-01] MEDS: LACTOBACILLUS CHEW TABLET PO SCH (09:18)
[2019-09-01] MEDS: CARVEDILOL 3.125 MG TABLET PO SCH (09:18)
[2019-09-01] MEDS: DIVALPROEX 125 MG CAP.SPRINK PO SCH (09:18)
[2019-09-01] MEDS ORDERED: BENZ1TAB61 PO (10:37)
[2019-09-01] MEDS ORDERED: RISP2TAB35 PO (10:37)
[2019-09-01] MEDS ORDERED: SENN-193 PO (10:37)
[2019-09-01] MEDS ORDERED: BISA10SU4 PR (10:37)
[2019-09-01] MEDS ORDERED: CHOL10003 PO (10:37)
[2019-09-01 12:06] VITALS: BP 110/63
[2019-09-01] MEDS ORDERED: SENNA/DOCUSATE TABLET PO SCH (21:00)
== END 2019-09-01 14:00 | DRG 291 ==
LOC: ED 03:50 → EDIP 05:51 → 4EST 15:03
PROVIDERS: ADMIT Internal Medicine; ATTEND Internal Medicine
DX: I13.0 Hypertensive heart and chronic kidney disease with heart failure and stage 1 through stage 4 chronic kidney disease, or unspecified chronic kidney disease (principal); I50.23 Acute on chronic systolic (congestive) heart failure; J96.01 Acute respiratory failure with hypoxia; D68.69 Other thrombophilia; E87.1 Hypo-osmolality and hyponatremia; J44.1 Chronic obstructive pulmonary disease with (acute) exacerbation; J98.11 Atelectasis; N17.9 Acute kidney failure, unspecified; N13.30 Unspecified hydronephrosis; E78.00 Pure hypercholesterolemia, unspecified; D64.9 Anemia, unspecified; N18.3 Chronic kidney disease, stage 3 (moderate); E11.65 Type 2 diabetes mellitus with hyperglycemia; F03.90 Unspecified dementia, unspecified severity, without behavioral disturbance, psychotic disturbance, mood disturbance, and anxiety; E61.1 Iron deficiency; E11.22 Type 2 diabetes mellitus with diabetic chronic kidney disease; G24.01 Drug induced subacute dyskinesia; G89.29 Other chronic pain; I25.10 Atherosclerotic heart disease of native coronary artery without angina pectoris; M54.9 Dorsalgia, unspecified; I44.7 Left bundle-branch block, unspecified; I48.0 Paroxysmal atrial fibrillation; N40.1 Benign prostatic hyperplasia with lower urinary tract symptoms; R33.8 Other retention of urine; Z86.73 Personal history of transient ischemic attack (TIA), and cerebral infarction without residual deficits; Z75.1 Person awaiting admission to adequate facility elsewhere; Z79.4 Long term (current) use of insulin; Z87.891 Personal history of nicotine dependence; Z90.81 Acquired absence of spleen; Z93.59 Other cystostomy status; Z99.81 Dependence on supplemental oxygen; Z90.49 Acquired absence of other specified parts of digestive tract; Z88.2 Allergy status to sulfonamides; Z79.899 Other long term (current) drug therapy
CPT/HCPCS: 36415; 70450; 71045; 74230; 80048; 80053; 80061; 80162; 81001; 82040; 82306; 82607; 82728; 82962; 83036; 83540; 83550; 83735; 83880; 84439; 84443; 84466; 84484; 85025; 85610; 85730; 87077; 87086; 87186; 93005; 93306; 94640; 96374; G0378; J1756; J1940; J2405; J1815; J7030